=== PATIENT | female | born 2000 | race Caucasian/White ===

== ENCOUNTER 2022-03-17 10:07 | Outpatient (CLI) | payer BC, SELFPAY ==
[2022-03-17 15:08] LABS: SARS PCR* POSITIVE SARS-CoV-2 (Negative)
== END 2022-03-17 10:08 | disposition home or self-care (01) ==
LOC: LONREF 10:08
PROVIDERS: PCP Family Medicine; Visit Provider Family Medicine
DX: Z11.52 Encounter for screening for COVID-19 (principal)
CPT/HCPCS: 87635